=== PATIENT | male | born 1935 | race Caucasian/White ===

== ENCOUNTER 2018-09-24 16:01 | Emergency (ER) | END 2018-09-24 20:49 | disposition home or self-care (01) ==

== ENCOUNTER 2019-02-12 20:16 | Inpatient (IN) | payer MEDICARE, OTHER ==
[~2019-02-12] VITALS: Ht 157.5 cm; Wt 72.8 kg
[~2019-02-12 20:16] MED LIST: AMAN100C96 PO; ASPI-817 PO; ATEN50TA PO; CARB1TAB47 PO; DUTA0.5C PO; FOLI-49 PO; MONT10TA24 PO; PANT40TA3 PO; POTA8CAP PO; PREG50CA PO; SIN50200 PO; TAMS0.4C2 PO; TEMA15CA PO
[2019-02-13] MEDS ORDERED: SOD CHLORIDE 0.9% 500 ML IV STA (00:11)
[2019-02-13] MEDS ORDERED: CARBIDOPA/LEVODOPA 50-200 (CR) TAB PO ONE (00:30)
--- NOTE | 2019-02-13 01:42 | ERD ---
ER Documentation Chief Complaint Chief Complaint C/O SEVERE HAMM X2 DAYS, TREATED SHINGLES TO RT FACE 6MONTHS AGO HPI This is an 83-year-old male, dysuria for 2 days. Patient has tried antibiotics for sinusitis and was sent by primary care for further evaluation management. No focal neurologic complaints. No pain behind his eyes. No other current issues. No change in visual acuity. Primary care physician sent him essentially for blood work antibiotics and admission ROS All systems reviewed and are negative except as per history of present illness. Medications Home Meds Reported Medications Pantoprazole* (Protonix*) 40 Mg Tablet.dr, 40 MG PO DAILY, TAB 11/04/18 Folic Acid* (Folic Acid*) 1 Mg Tablet, 1 MG PO DAILY, TAB 09/24/18 Temazepam* (Temazepam*) 15 Mg Capsule, 15 MG PO HS PRN for INSOMNIA, CAP 09/24/18 Aspirin* (Aspirin* EC) 81 Mg Tablet.dr, 81 MG PO DAILY, TAB 09/24/18 Potassium Chloride* (Potassium Chloride*) 8 Meq Capsule.er, 8 MEQ PO DAILY, CAP 09/24/18 Pregabalin* (Lyrica*) 50 Mg Capsule, 50 MG PO DAILY, CAP 09/24/18 Dutasteride* (Avodart*) 0.5 Mg Capsule, 0.5 MG PO DAILY, CAP 09/24/18 Montelukast Sodium* (Montelukast Sodium*) 10 Mg Tablet, 10 MG PO QHS, #30 TAB 09/24/18 Tamsulosin Hcl* (Tamsulosin Hcl*) 0.4 Mg Cap.er.24h, 0.8 MG PO HS, CAP 09/24/18 Atenolol* (Atenolol*) 50 Mg Tablet, 50 MG PO DAILY, #30 TAB 09/24/18 Amantadine Hcl* (Amantadine Hcl*) 100 Mg Capsule, 100 MG PO BID, #60 CAP 09/24/18 Carbidopa/Levodopa (CARBIDOPA-LEVO 25-250 MG ODT) 1 Each Tab.rapdis, 1 TAB PO TID, #90 TAB 09/24/18 Carbidopa-Levodopa* (Sinemet CR*) 50-200 Mg Tabsr, 1 TAB PO QHS, TAB 09/24/18 Allergies Allergies: Coded Allergies: No Known Allergy (Unverified , 09/24/18) PMhx/Soc History of Surgery: No Anesthesia Reaction: No Hx Neurological Disorder: Yes (PARKINSONS) Hx Respiratory Disorders: Yes (ASTHMA) Hx Cardiac Disorders: Yes (HTN) Hx Psychiatric Problems: No Hx Miscellaneous Medical Probl: No Hx Alcohol Use: No Hx Substance Use: No Hx Tobacco Use: Yes (1PACK/DAY) Smoking Status: Current every day smoker Physical Exam Vitals Vital Signs Date Temp Pulse Resp B/P (MAP) Pulse Ox O2 O2 Flow FiO2 Time Delivery Rate 02/13/19 98.5 105 18 137/73 97 Room Air 00:25 (94) 02/12/19 98.5 116 18 144/64 95 20:47 (90) Physical Exam Const: No acute distress Head: Atraumatic Eyes: Normal Conjunctiva ENT: Normal External Ears, Nose and Mouth. Neck: Full range of motion. No meningismus. Resp: Clear to auscultation bilaterally Cardio: Regular rate and rhythm, no murmurs Abd: Soft, non tender, non distended. Normal bowel sounds Skin: No petechiae or rashes Back: No midline or flank tenderness Ext: No cyanosis, or edema Neur: Awake and alert Psych: Normal Mood and Affect Result Diagram: 02/13/19 0034 Results 24 hrs Laboratory Tests Test 02/13/19 00:34 White Blood Count 7.7 10^3/ul Red Blood Count 4.58 10^6/ul Hemoglobin 12.9 g/dl Hematocrit 42.4 % Mean Corpuscular Volume 92.6 fl Mean Corpuscular Hemoglobin 28.2 pg Mean Corpuscular Hemoglobin Concent 30.4 g/dl Red Cell Distribution Width 13.2 % Platelet Count 256 10^3/UL Mean Platelet Volume 11.1 fl Immature Granulocytes % 0.700 % Neutrophils % 73.4 % Lymphocytes % 15.9 % Monocytes % 7.3 % Eosinophils % 2.2 % Basophils % 0.5 % Nucleated Red Blood Cells % 0.0 /100WBC Immature Granulocytes # 0.050 10^3/ul Neutrophils # 5.6 10^3/ul Lymphocytes # 1.2 10^3/ul Monocytes # 0.6 10^3/ul Eosinophils # 0.2 10^3/ul Basophils # 0.0 10^3/ul Nucleated Red Blood Cells # 0.0 10^3/ul Urine Color YELLOW Urine Clarity CLEAR Urine pH 6.0 Urine Specific [place] 1.016 Urine Ketones TRACE mg/dL Urine Nitrite NEGATIVE mg/dL Urine Bilirubin NEGATIVE mg/dL Urine Urobilinogen NEGATIVE mg/dL Urine Leukocyte Esterase 2+ Mark/ul Urine Microscopic RBC 4 /HPF Urine Microscopic WBC 24 /HPF Urine Squamous Epithelial Cells FEW /HPF Urine Bacteria FEW /HPF Urine Hemoglobin NEGATIVE mg/dL Urine Glucose NEGATIVE mg/dL Urine Total Protein NEGATIVE mg/dl Current Medications Medications Dose Sig/Kamini Start Time Status Last (Trade) Ordered Route PRN Stop Time Admin Dose Reason Admin Sodium 500 ml @ Q1H STAT 02/13/19 DC 02/13/19 Chloride 500 mls/hr IV 00:11 01:22 02/13/19 01:10 1 tab ONCE ONCE 02/13/19 DC 02/13/19 Carbidopa/Lev PO 00:30 01:20 odopa 02/13/19 00:31 (Sinemet Cr (50/ 200)) Procedures/MDM Medical decision makin-year-old male with sinusitis failure of outpatient management. Dr. Stringer and Departure Diagnosis: Primary Impression: Headache Headache type: unspecified Headache chronicity pattern: unspecified pattern Intractability: not intractable Qualified Codes: R51 - Headache Condition: Stable DEVANTE REED February 13, 2019 01:42
[2019-02-13 02:20] VITALS: BP 144/71; PULSE 105; RESP 18
[2019-02-13 02:44] VITALS: Ht 157.5 cm; Wt 72.8 kg
[2019-02-13] MEDS ORDERED: VANCOMYCIN 1 GM (PMX) 250 ML IVPB SCH (03:30)
[2019-02-13] MEDS ORDERED: VANCOMYCIN HCL 1.5 GM in SOD CHLORIDE 0.9% 250 ML IVPB SCH (05:00)
[2019-02-13] MEDS ORDERED: VANCOMYCIN IV PER PHARMACY XX SCH ×2 (05:00)
[2019-02-13 08:00] VITALS: BP 152/70; PULSE 70; RESP 18
[2019-02-13] MEDS: ALBUTEROL/IPRATROPIUM (NEB) 3 ML AMP HHN SCH ×3 (08:12→23:12)
[2019-02-13] MEDS: AMANTADINE 100 MG CAP PO SCH ×2 (09:00→22:27)
[2019-02-13] MEDS ORDERED: CARBIDOPA/LEVODOPA (25/250) TAB PO SCH (09:00)
[2019-02-13] MEDS: NICOTINE (7 MG/24 HR) PATCH TRANSDERM SCH (09:00)
--- NOTE | 2019-02-13 09:14 | HP ---
Date/Time of Note Date/Time of Note DATE: 02/13/19 TIME: 09:02 Assessment/Plan VTE Prophylaxis SCD applied (from Nsg): No SCD contraindicated: other (on.) Pharmacological prophylaxis: LMWH Lines/Catheters IV Catheter Type (from Nrsg): [place] [employer] line still needed: No Urinary Cath still in place: Yes Reason Cath still needed: urinary retention Assessment/Plan Assessment/Plan 1. Right hemicranial pain mainly in the forehead area and right ear area with urinalysis and erythema of the earlobe along with pain. Posterior history of shingles over the right ear and earlobe area about a year ago. Clinically patient feels the same symptoms at the probability of recurrence of her shingles is high. Continue follow-up and restart Valtrex. Cellulitis of the right cheek area is more visible comparing with yesterday despite with Zithromax received 2 to 3 days ago. 2. Nausea with no vomiting. 3. Sinusitis with pain recurrent. 4. Recurrent episode of severe hypoxemia last night accompanying with confusion irritability noncompliance and possible psychosis .for severe hypoxemia- pulmonary consult acknowledged. PFT test planned 5. 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 6. COPD exacerbation with pleural effusion. 7 Hx nicotine addiction with current restarted smoking according to him 5 to 6 cigarettes a day. 8. anemia of chronic disease and iron deficiency 9. Low back pain 10. Weight loss 11. Ad and MD 12. Ischemic heart disease angina 13. 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 Confusion, disorientation, occasional episodes of delusions 15. BPH 16. Osteoporosis and osteoarthritis 17. Memory impairment 18. Unstable gait 19. Dehydration with near fall episodes 20. Muscular atrophy 21. Severe peripheral neuropathy 22. Noncompliance to medications 23.Uncontrolled HTN 24.Hx of intubation and mechanical ventilation many years ago after severe exacerbation of copd. 25.History of multiple units of prbc transfusion in [facility]. the narrow arteries of the of the right side and partially to the left lower extremity 26. Anxiety disorder with episodes of confusion panic attack as well as last night improved after taking Ativan 1 mg IV. 27.Incomplete information. Result Diagram: 02/13/19 0034 02/13/19 0034 Results 24hrs Laboratory Tests Test 02/13/19 00:34 White Blood Count 7.7 # Red Blood Count 4.58 L Hemoglobin 12.9 L Hematocrit 42.4 Mean Corpuscular Volume 92.6 Mean Corpuscular Hemoglobin 28.2 L Mean Corpuscular Hemoglobin Concent 30.4 L Red Cell Distribution Width 13.2 Platelet Count 256 # Mean Platelet Volume 11.1 H Immature Granulocytes % 0.700 H Neutrophils % 73.4 Lymphocytes % 15.9 Monocytes % 7.3 Eosinophils % 2.2 Basophils % 0.5 Nucleated Red Blood Cells % 0.0 Immature Granulocytes # 0.050 H Neutrophils # 5.6 Lymphocytes # 1.2 Monocytes # 0.6 Eosinophils # 0.2 Basophils # 0.0 Nucleated Red Blood Cells # 0.0 Erythrocyte Sedimentation Rate 12 Urine Color YELLOW Urine Clarity CLEAR Urine pH 6.0 Urine Specific [place] 1.016 Urine Ketones TRACE A Urine Nitrite NEGATIVE Urine Bilirubin NEGATIVE Urine Urobilinogen NEGATIVE Urine Leukocyte Esterase 2+ H Urine Microscopic RBC 4 Urine Microscopic WBC 24 H Urine Squamous Epithelial Cells FEW Urine Bacteria FEW A Urine Hemoglobin NEGATIVE Urine Glucose NEGATIVE Urine Total Protein NEGATIVE Sodium Level 142 Potassium Level 4.2 Chloride Level 104 Carbon Dioxide Level 27 Anion Gap 11 Blood Urea Nitrogen 19 Creatinine 1.13 Est Glomerular Filtrat Rate mL/min Glucose Level 111 Calcium Level 10.0 Magnesium Level 2.1 Iron Level 49 Total Iron Binding Capacity 366 Percent Iron Saturation 13 L Total Bilirubin 0.3 Direct Bilirubin 0.00 Indirect Bilirubin 0.3 Aspartate Amino Transf (AST/SGOT) 15 Alanine Aminotransferase (ALT/SGPT) < 6 L Alkaline Phosphatase 100 Creatine Kinase 30 Creatine Kinase Index 2.5 Creatinine Kinase MB (Mass) 0.76 Troponin I < 0.012 C-Reactive Protein 1.7 H Total Protein 7.9 Albumin 4.7 Globulin 3.20 Albumin/Globulin Ratio 1.46 Lipase 46 HPI/ROS Admit Date/Time Admit Date/Time February 13, 2019 at 01:16 Hx of Present Illness Headache mainly in the frontal area accompanied with nausea and worsening of her shaking of right more than left upper extremity. Now the pain is more in the retroauricular area and he feels blurry vision on the right eye mainly. The patient came to the office last 3 days almost daily with above-mentioned complaints and having also chills. He smokes had a history of intubation due to worsening of his COPD and had ischemic heart disease angina decision was made to start antibiotic in the form of Zithromax along with Labe Lama inhaler in the form of Anoro last 3 days. After starting the treatment 1 day patient felt better that the pain intensity came down and he had no chills. However yesterday patient came to the office twice one in the morning when physical exam was without significant findings however during the daytime when patient came to the office he was stating that the blurry vision of the right eye got more prominent referred him to the chip separator in the [place] area after 3 hours patient came back with a statement that fundal examination was normal pressures were normal there were no signs of any acute changes in the eyes. Patient continues to have frontal area headache mainly in the right side right eye pain including right ear pain he had a history of shingles the suspicion of a possible recurrence of his shingles in the same region with erythema of the right earlobe area and hearing impairment along with worsening of shortness of breath becoming dizzy and worsening of a headache was a basis for me to change outpatient treatment plan to the inpatient and attempted to admit the patient by direct admission. Multiple schools were made but it was impossible and the patient was admitted to the emergency room. Lab results were not significant compared with the previous exams including the anemia level. His WBCs are not elevated CT of the head was not done. Started with empiric antibiotics including coverage for possible recurrence of herpes zoster. ROS Subjective hx not possible: pt critical Constitutional: chills, diaphoresis, disoriented, fatigue, febrile, nausea, poor po, weight change; No no complaints, No improved, No other Eyes: pain, redness, visual change (Patient feels blurry on the right eye), other; No no complaints, No discharge ENT: No no complaints, No bleeding, No pain, No congestion, No discharge, No dysphagia, No sore throat, No other Respiratory: cough ( no complaints of her left eye), pleuritic pain, shortness of breath, sputum, wheezing; No no complaints, No pain, No other Cardiovascular: chest pain, edema, lightheadedness, orthopenea, palpitations; No no complaints, No paroxysmal nocturnal dyspnea, No other Gastrointestinal: pain, constipation, decreased appetite, flatus, nausea, passing stool; No no complaints, No blood, No diarrhea, No vomiting, No other Genitourinary: dysuria; No no complaints, No bleeding, No discharge, No flank pain, No hematuria, No other Musculoskeletal: back pain, bone/joint pain, neck pain; No no complaints, No restricted range of motion, No swelling, No other Skin: erythema, pruritis, rash; No no complaints, No bruising, No laceration, No skin lesions, No other Neurologic: confusion (On and off with memory impairment.), dizziness, headache; No no complaints, No focal-weakness, No syncope, No seizure, No other Endocrine: No no complaints, No polyuria, No polydypsia, No dry skin, No temp intolerance, No weight change, No other Lymphatic: No no complaints, No adenopathy, No tender nodes, No lymphadema, No other Psychological: anxiety, depression; No no complaints, No nl mood/affect, No confusion, No suicidal, No other Immunologic: No no complaints, No immunodeficiency, No pruritis, No rhinitis, No urticaria, No other PMH/Family/Social Past Medical History Medical History: angina, colitis, congestive heart failure, coronary artery disease, GERD, GI bleed, high cholesterol, hypertension, renal disease, urinary tract infection Medications Current Medications Amantadine HCl (Symmetrel) 100 mg BID PO ; Start 02/13/19 at 09:00 Aspirin (Halfprin) 81 mg DAILY PO ; Start 02/13/19 at 09:00 Atenolol (Tenormin) 50 mg DAILY PO ; Start 02/13/19 at 09:00 Carbidopa/Levodopa (Sinemet Cr (50/ 200)) 1 tab QHS PO ; Start 02/13/19 at 21:00 Dutasteride (Avodart) 0.5 mg DAILY PO ; Start 02/13/19 at 09:00 Folic Acid (Folic Acid) 1 mg DAILY PO ; Start 02/13/19 at 09:00 Montelukast Sodium (Singulair) 10 mg QHS PO ; Start 02/13/19 at 21:00 Pantoprazole (Protonix Tab) 40 mg DAILY PO ; Start 02/13/19 at 09:00 Pregabalin (Lyrica) 50 mg DAILY PO ; Start 02/13/19 at 09:00 Tamsulosin HCl (Flomax) 0.8 mg HS PO ; Start 02/13/19 at 21:00 Albuterol/ Ipratropium (Duoneb) 3 ml Q8H RESP THERAPY HHN Last administered on 02/13/19at 08:12; Admin Dose 3 ML; Start 02/13/19 at 08:00 Nicotine (Nicoderm 7 Mg/ 24 Hr) 1 patch DAILY TRANSDERM ; Start 02/13/19 at 09:00 Valacyclovir HCl (Valtrex) 1,000 mg BID PO ; Start 02/13/19 at 09:00 Acetaminophen (Tylenol Tab) 500 mg Q8 PRN PO MILD PAIN(1-3)OR ELEVATED TEMP; Start 02/13/19 at 03:30 Vancomycin HCl (Vanco Iv Per Pharmacy) VANCOMYCIN PER PHARMACY PER PROTOCOL XX ; Start 02/13/19 at 05:00 Carbidopa/Levodopa (Sinemet (25/ 250)) 1 tab TID@0900,1300,1700 PO ; Start 02/13/19 at 09:00 Vancomycin HCl 250 ml @ 125 mls/hr Q24H IVPB ; Start 02/14/19 at 06:00 Coded Allergies: No Known Allergy (Unverified , 02/13/19) Past Surgical History Past Surgical Hx: endoscopy, other Social History Alcohol Use: none Smoking Status: Current every day smoker Drug Use: none Exam/Review of Systems Vital Signs Vitals Vital Signs Date Temp Pulse Resp B/P (MAP) Pulse Ox O2 O2 Flow FiO2 Time Delivery Rate 02/13/19 78 18 95 21 08:15 02/13/19 98.3 152/70 Room Air 08:00 (97) Exam Constitutional: alert, oriented, well developed, distress, frail; No non-verbal, No other Psych: anxiety, depression; No no complaints, No nl mood/affect, No confusion, No suicidal, No other Head: normocephalic, atraumatic; No lacerations, No hematomas, No other Eyes: EOMI, nl lids, PERRL, other (Post bilateral cataract ectomy surgery changes along with the changes consistent with plastic surgery of her eyelids with good results. Right orbital fissure is slightly wider than left one with tearfullness); No nl conjunctiva, No nl sclera, No icteric, No fundi, disc ENMT: nl external ears & nose (Very dry external ear bilaterally with erythematous earlobe on the posterior aspect), nl lips & teeth (Dentures), nl nasal mucosa & septum (Possible mild watery discharge from nasal), tympanic membranes ( passages bilaterally); No mucosa pink and moist, No intubated, No other Neck: bruits, nuchal rigidity; No supple, No non-tender, No jvd, No masses, No thyromegaly, No other Respiratory: congested cough, diminished breath sounds, wheezing; No clear to auscultation, No normal air movement, No crackles/rales, No intercostal retraction, No labored breathing, No respirations, No tactile fremitus, No other Cardiovascular: regular rate and rhythm, nl pulses, systolic murmur; No bruits, No diastolic murmur, No edema, No gallop, No irregular rhythm, No jugular venous distention (JVD), No murmurs/extra sounds, No rub, No S3, No S4, No other Gastrointestinal: soft, nl liver, spleen, bowel sounds, distended; No non-tender, No ascites, No firm, No hepatomegaly, No mass, No rebound or guarding, No splenomegaly, No surgical scars, No tender, No other Genitourinary - Male: nl penis, nl scrotum Genitourinary - Female: No nl adnexae, No nl external genitalia, No CMT, No CVA tenderness, No uterus, No other Musculoskeletal: nl extremities to inspection (Unstable gait), nl gait and stance, joint tenderness, muscle tone, muscle weakness (Decreased muscular tone); No range of motion, No spine non-tender, No swelling, No other Extremities: normal pulses; No calf tenderness, No cyanosis, No clubbing, No edema, No pitting pedal edema, No palpable cord, No tenderness, No other Neurological: 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
[2019-02-13] MEDS: valACYclovir 500 MG TAB PO SCH ×2 (09:58→20:24)
[2019-02-13] MEDS: PREGABALIN 50 MG CAP PO SCH (09:58)
[2019-02-13] MEDS: PANTOPRAZOLE (EC) 40 MG TAB PO SCH (09:58)
[2019-02-13] MEDS: FOLIC ACID 1 MG TAB PO SCH (09:59)
[2019-02-13] MEDS: DUTASTERIDE 0.5 MG CAP PO SCH (09:59)
[2019-02-13] MEDS: ASPIRIN (EC) 81 MG TAB PO SCH (09:59)
[2019-02-13] MEDS: CARBIDOPA/LEVODOPA (25/250) TAB PO SCH ×3 (10:00→16:50)
[2019-02-13] MEDS: ATENOLOL 50 MG TAB PO SCH (10:00)
[2019-02-13] MEDS: ACETAMINOPHEN 500 MG TAB PO PRN ×2 (10:01→22:27)
[2019-02-13] MEDS ORDERED: IODIXANOL LOCM 100 ML BTL ONE (11:12)
[2019-02-13] MEDS ORDERED: SOD CHLORIDE 0.9% 100 ML ONE (11:12)
[2019-02-13 14:00] VITALS: BP 134/72; RESP 18
[2019-02-13 20:10] VITALS: BP 137/68; PULSE 81; RESP 18
[2019-02-13] MEDS: MONTELUKAST 10 MG TAB PO SCH (20:24)
[2019-02-13] MEDS: TAMSULOSIN (SR) 0.4 MG CAP PO SCH (20:25)
[2019-02-13] MEDS: CARBIDOPA/LEVODOPA 50-200 (CR) TAB PO SCH (20:31)
[2019-02-14 00:42] VITALS: BP 116/58; PULSE 85; RESP 18
[2019-02-14] MEDS: HYDROCODONE/APAP (5/325) TAB PO PRN (00:45)
[2019-02-14 05:00] VITALS: BP 126/62; PULSE 83; RESP 18
[2019-02-14] MEDS: VANCOMYCIN 1 GM 250 ML IVPB SCH (05:24)
[2019-02-14 08:00] VITALS: BP 136/76; PULSE 76; RESP 18
[2019-02-14] MEDS: ALBUTEROL/IPRATROPIUM (NEB) 3 ML AMP HHN SCH ×2 (08:00→16:00)
--- NOTE | 2019-02-14 09:50 | PN ---
Date/Time of Note Date/Time of Note DATE: 02/14/19 TIME: 09:50 Assessment/Plan VTE Prophylaxis Risk score (from Nsg)>0 risk: 3 SCD applied (from Nsg): Yes SCD contraindicated: other (on.) Pharmacological prophylaxis: LMWH Lines/Catheters IV Catheter Type (from Nrsg): [place] [employer] line still needed: No Urinary Cath still in place: Yes Reason Cath still needed: urinary retention Assessment/Plan Assessment/Plan 1. Right hemicranial pain mainly in the forehead area and right ear area with urinalysis and erythema of the earlobe on the right side of the face getting more edematous comparing with yesterday along with the pain. No radiation of the posterior aspect of the right earlobe possible recurrence of her shingles however no blister. Decreased erythema of the right cheek area. 2. Nausea with no vomiting. 3. Sinusitis with pain recurrent. 4. Recurrent episode of severe hypoxemia last night accompanying with confusion irritability noncompliance and possible psychosis .for severe hypoxemia-pu lmonary consult acknowledged. PFT test planned 5. 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 6. COPD exacerbation with pleural effusion. 7 Hx nicotine addiction with current restarted smoking according to him 5 to 6 cigarettes a day. 8. anemia of chronic disease and iron deficiency 9. Low back pain 10. Weight loss 11. Ad and MD 12. Ischemic heart disease angina 13. 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 Confusion, disorientation, occasional episodes of delusions 15. BPH 16. Osteoporosis and osteoarthritis 17. Memory impairment 18. Unstable gait 19. Dehydration with near fall episodes 20. Muscular atrophy 21. Severe peripheral neuropathy 22. Noncompliance to medications 23.Uncontrolled HTN 24.Hx of intubation and mechanical ventilation many years ago after severe exacerbation of copd. 25.History of multiple units of prbc transfusion in [facility]. the narrow arteries of the of the right side and partially to the left lower extremity 26. Anxiety disorder with episodes of confusion panic attack as well as last night improved after taking Ativan 1 mg IV. 27.Incomplete information. Result Diagram: 02/14/19 0548 02/14/19 0548 Results 24hrs Laboratory Tests Test 02/14/19 05:48 White Blood Count 6.7 Red Blood Count 4.29 L Hemoglobin 12.2 L Hematocrit 39.1 L Mean Corpuscular Volume 91.1 Mean Corpuscular Hemoglobin 28.4 L Mean Corpuscular Hemoglobin Concent 31.2 L Red Cell Distribution Width 13.4 Platelet Count 241 Mean Platelet Volume 11.4 H Immature Granulocytes % 0.400 Neutrophils % 66.6 Lymphocytes % 21.1 Monocytes % 8.2 Eosinophils % 3.3 Basophils % 0.4 Nucleated Red Blood Cells % 0.0 Immature Granulocytes # 0.030 Neutrophils # 4.5 Lymphocytes # 1.4 Monocytes # 0.6 Eosinophils # 0.2 Basophils # 0.0 Nucleated Red Blood Cells # 0.0 Sodium Level 141 Potassium Level 4.3 Chloride Level 107 Carbon Dioxide Level 26 Anion Gap 8 Blood Urea Nitrogen 14 Creatinine 1.08 Est Glomerular Filtrat Rate mL/min Glucose Level 128 Calcium Level 9.3 Total Bilirubin 0.3 Direct Bilirubin 0.00 Indirect Bilirubin 0.3 Aspartate Amino Transf (AST/SGOT) 13 L Alanine Aminotransferase (ALT/SGPT) 7 L Alkaline Phosphatase 83 Total Protein 7.0 Albumin 4.4 Globulin 2.60 Albumin/Globulin Ratio 1.69 Subjective 24 Hr Interval Summary Free Text/Dictation New blisterlike lesion in the posterior aspect of the right earlobe with scaling lesion in the mid area of the skin. The posterior aspect of the right earlobe lesion. Significant decrease of the intensity of swelling and redness of the right cheek area right infraorbital side. Persistent pain in the right hemicranial area. Constitutional: improved, chills, febrile, poor po; No no complaints, No diaphoresis, No disoriented, No requiring IVF, No requiring O2, No other Eyes: No no complaints, No pain, No discharge, No redness, No visual change, No other ENT: pain, congestion, discharge, dysphagia, other; No no complaints, No bleeding, No sore throat Respiratory: cough, pleuritic pain, shortness of breath; No no complaints, No pain, No sputum, No wheezing, No other Cardiovascular: chest pain, lightheadedness, orthopenea, palpitations; No no complaints, No edema, No paroxysmal nocturnal dyspnea, No other Gastrointestinal: constipation, decreased appetite, nausea, passing stool; No no complaints, No pain, No blood, No diarrhea, No flatus, No vomiting, No other Genitourinary: dysuria, flank pain; No no complaints, No bleeding, No discharge, No hematuria, No other Musculoskeletal: back pain, bone/joint pain; No no complaints, No neck pain, No restricted range of motion, No swelling, No other Skin: erythema (Right zygomatic & inferior lead area erythema less intense than yesterday.), pruritis, rash; No no complaints, No bruising, No laceration, No skin lesions, No other Psychological: anxiety; No no complaints, No nl mood/affect, No confusion, No depression, No suicidal, No other Immunologic: No no complaints, No immunodeficiency, No pruritis, No rhinitis, No urticaria, No other Exam/Review of Systems Exam Vitals Vital Signs Date Temp Pulse Resp B/P (MAP) Pulse Ox O2 O2 Flow FiO2 Time Delivery Rate 02/14/19 98.8 76 18 136/76 98 08:00 (96) 02/14/19 Room Air 00:42 02/13/19 21 23:12 Intake and Output 02/13/19 02/13/19 02/14/19 1414:59 22:59 06:59 IntakeIntake Total 350 ml 600 ml 720 ml BalanceBalance 350 ml 600 ml 720 ml Constitutional: alert, oriented, well developed, distress, frail Psych: anxiety, confusion; No no complaints, No nl mood/affect, No depression, No suicidal, No other Head: normocephalic, atraumatic; No lacerations, No hematomas, No other Eyes: EOMI, nl lids, PERRL; No nl conjunctiva, No nl sclera, No icteric, No fundi, disc, No other ENMT: nl lips & teeth; No nl external ears & nose, No nl nasal mucosa & septum, No mucosa pink and moist, No intubated, No tympanic membranes, No other Neck: non-tender, bruits, thyromegaly; No supple, No jvd, No masses, No nuchal rigidity, No other Respiratory: clear to auscultation, congested cough, crackles/rales, diminished breath sounds, respirations; No normal air movement, No intercostal retraction, No labored breathing, No tactile fremitus, No wheezing, No other Cardiovascular: regular rate and rhythm, bruits, edema, irregular rhythm, jugular venous distention (JVD), systolic murmur; No nl pulses, No diastolic murmur, No gallop, No murmurs/extra sounds, No rub, No S3, No S4, No other Gastrointestinal: soft, nl liver, spleen, ascites, distended, rebound or guarding; No non-tender, No bowel sounds, No firm, No hepatomegaly, No mass, No sple nomegaly, No surgical scars, No tender, No other Genitourinary - Male: nl penis Musculoskeletal: nl gait and stance (Unstable.), joint tenderness, muscle tone, muscle weakness; No nl extremities to inspection, No range of motion, No spine non-tender, No swelling, No other Extremities: No normal pulses, No calf tenderness, No cyanosis, No clubbing, No edema, No pitting pedal edema, No palpable cord, No tenderness, No other Neurological: No [employer]ANS[employer] IMM[employer]IST II-XII intact, No nl mental status, No nl speech, No nl strength, No confused, No DTR's symmetric, No focal weakness, No lethargic, No numbness, No reflexes, No unresponsive, No other Skin: nl turgor (Decreased.), rash or lesions (Right zygomatic & inferior lead area erythema less intense than yesterday. Blisterlike lesions with scaling in posterior aspect of the right earlobe.), ecchymosis; No diaphoresis, No laceration, No puncture, No other Lymph: No nl lymph nodes, No enlarged, No nontender, No other Results Results 24hrs Laboratory Tests Test 02/14/19 05:48 White Blood Count 6.7 Red Blood Count 4.29 L Hemoglobin 12.2 L Hematocrit 39.1 L Mean Corpuscular Volume 91.1 Mean Corpuscular Hemoglobin 28.4 L Mean Corpuscular Hemoglobin Concent 31.2 L Red Cell Distribution Width 13.4 Platelet Count 241 Mean Platelet Volume 11.4 H Immature Granulocytes % 0.400 Neutrophils % 66.6 Lymphocytes % 21.1 Monocytes % 8.2 Eosinophils % 3.3 Basophils % 0.4 Nucleated Red Blood Cells % 0.0 Immature Granulocytes # 0.030 Neutrophils # 4.5 Lymphocytes # 1.4 Monocytes # 0.6 Eosinophils # 0.2 Basophils # 0.0 Nucleated Red Blood Cells # 0.0 Sodium Level 141 Potassium Level 4.3 Chloride Level 107 Carbon Dioxide Level 26 Anion Gap 8 Blood Urea Nitrogen 14 Creatinine 1.08 Est Glomerular Filtrat Rate mL/min Glucose Level 128 Calcium Level 9.3 Total Bilirubin 0.3 Direct Bilirubin 0.00 Indirect Bilirubin 0.3 Aspartate Amino Transf (AST/SGOT) 13 L Alanine Aminotransferase (ALT/SGPT) 7 L Alkaline Phosphatase 83 Total Protein 7.0 Albumin 4.4 Globulin 2.60 Albumin/Globulin Ratio 1.69 Medications Medication Current Medications Amantadine HCl (Symmetrel) 100 mg BID PO Last administered on 02/13/19 22:27; Admin Dose 100 MG; Start 02/13/19 at 09:00 Aspirin (Halfprin) 81 mg DAILY PO Last administered on 02/13/19 09:59; Admin Dose 81 MG; Start 02/13/19 at 09:00 Atenolol (Tenormin) 50 mg DAILY PO Last administered on 02/13/19 10:00; Admin Dose 50 MG; Start 02/13/19 at 09:00 Carbidopa/Levodopa (Sinemet Cr (50/ 200)) 1 tab QHS PO Last administered on 02/13/19 20:31; Admin Dose 1 TAB; Start 02/13/19 at 21:00 Dutasteride (Avodart) 0.5 mg DAILY PO Last administered on 02/13/19 09:59; Admin Dose 0.5 MG; Start 02/13/19 at 09:00 Folic Acid (Folic Acid) 1 mg DAILY PO Last administered on 02/13/19 09:59; Admin Dose 1 MG; Start 02/13/19 at 09:00 Montelukast Sodium (Singulair) 10 mg QHS PO Last administered on 02/13/19 20:24; Admin Dose 10 MG; Start 02/13/19 at 21:00 Pantoprazole (Protonix Tab) 40 mg DAILY PO Last administered on 02/13/19 09:58; Admin Dose 40 MG; Start 02/13/19 at 09:00 Pregabalin (Lyrica) 50 mg DAILY PO Last administered on 02/13/19 09:58; Admin Dose 50 MG; Start 02/13/19 at 09:00 Tamsulosin HCl (Flomax) 0.8 mg HS PO Last administered on 02/13/19 20:25; Admin Dose 0.8 MG; Start 02/13/19 at 21:00 Albuterol/ Ipratropium (Duoneb) 3 ml Q8H RESP THERAPY HHN Last administered on 02/13/19at 23:12; Admin Dose 3 ML; Start 02/13/19 at 08:00 Nicotine (Nicoderm 7 Mg/ 24 Hr) 1 patch DAILY TRANSDERM ; Start 02/13/19 at 09:00 Valacyclovir HCl (Valtrex) 1,000 mg BID PO Last administered on 02/13/19at 2 0:24; Admin Dose 1,000 MG; Start 02/13/19 at 09:00 Acetaminophen (Tylenol Tab) 500 mg Q8 PRN PO MILD PAIN(1-3)OR ELEVATED TEMP Last administered on 02/13/19at 22:27; Admin Dose 500 MG; Start 02/13/19 at 03:30 Vancomycin HCl (Vanco Iv Per Pharmacy) VANCOMYCIN PER PHARMACY PER PROTOCOL XX ; Start 02/13/19 at 05:00 Carbidopa/Levodopa (Sinemet (25/ 250)) 1 tab TID@0900,1300,1700 PO Last administered on 02/13/19at 16:50; Admin Dose 1 TAB; Start 02/13/19 at 09:00 Vancomycin HCl 250 ml @ 125 mls/hr Q24H IVPB Last administered on 02/14/19at 05:24; Admin Dose 125 MLS/HR; Start 02/14/19 at 06:00 Acetaminophen/ Hydrocodone Bitart ([place] (5/325)) 1 tab Q6H PRN PO SEVERE PAIN 7-10 Last administered on 02/14/19at 00:45; Admin Dose 1 TAB; Start 02/14/19 at 01:00 LE STONE MD February 14, 2019 09:50
[2019-02-14] MEDS: PREGABALIN 50 MG CAP PO SCH (10:11)
[2019-02-14] MEDS: AMANTADINE 100 MG CAP PO SCH ×2 (10:11→21:01)
[2019-02-14] MEDS: valACYclovir 500 MG TAB PO SCH (10:11)
[2019-02-14] MEDS: DUTASTERIDE 0.5 MG CAP PO SCH (10:12)
[2019-02-14] MEDS: PANTOPRAZOLE (EC) 40 MG TAB PO SCH (10:12)
[2019-02-14] MEDS: FOLIC ACID 1 MG TAB PO SCH (10:13)
[2019-02-14] MEDS: ATENOLOL 50 MG TAB PO SCH (10:15)
[2019-02-14] MEDS: NICOTINE (7 MG/24 HR) PATCH TRANSDERM SCH (10:16)
[2019-02-14] MEDS: ASPIRIN (EC) 81 MG TAB PO SCH (10:54)
[2019-02-14] MEDS: CARBIDOPA/LEVODOPA (25/250) TAB PO SCH ×3 (10:54→17:56)
[2019-02-14] MEDS ORDERED: VARICELLA VACCINE LIVE/PF 1,350 UNIT/0.5 ML ML SC* ONE (12:00)
[2019-02-14 14:00] VITALS: BP 136/76; PULSE 84; RESP 18
--- NOTE | 2019-02-14 16:25 | CONS ---
Assessment/Plan Assessment/Plan Hospital Course (Demo Recall) kindly asked to consult. ty Consultation Date/Type/Reason Admit Date/Time February 13, 2019 at 01:16 Initial Consult Date Date/Time of Note DATE: 02/14/19 TIME: 16:24 Exam/Review of Systems Exam Vitals Vital Signs Date Temp Pulse Resp B/P (MAP) Pulse Ox O2 O2 Flow FiO2 Time Delivery Rate 02/14/19 98.8 84 18 136/76 96 14:00 (96) 02/14/19 Room Air 00:42 02/13/19 21 23:12 Intake and Output 02/13/19 02/13/19 02/14/19 1515:00 23:00 07:00 IntakeIntake Total 350 ml 600 ml 720 ml BalanceBalance 350 ml 600 ml 720 ml Results Result Diagram: 02/14/19 0548 02/14/19 0548 Results 24hrs Laboratory Tests Test 02/14/19 05:48 White Blood Count 6.7 Red Blood Count 4.29 L Hemoglobin 12.2 L Hematocrit 39.1 L Mean Corpuscular Volume 91.1 Mean Corpuscular Hemoglobin 28.4 L Mean Corpuscular Hemoglobin Concent 31.2 L Red Cell Distribution Width 13.4 Platelet Count 241 Mean Platelet Volume 11.4 H Immature Granulocytes % 0.400 Neutrophils % 66.6 Lymphocytes % 21.1 Monocytes % 8.2 Eosinophils % 3.3 Basophils % 0.4 Nucleated Red Blood Cells % 0.0 Immature Granulocytes # 0.030 Neutrophils # 4.5 Lymphocytes # 1.4 Monocytes # 0.6 Eosinophils # 0.2 Basophils # 0.0 Nucleated Red Blood Cells # 0.0 Sodium Level 141 Potassium Level 4.3 Chloride Level 107 Carbon Dioxide Level 26 Anion Gap 8 Blood Urea Nitrogen 14 Creatinine 1.08 Est Glomerular Filtrat Rate mL/min Glucose Level 128 Calcium Level 9.3 Total Bilirubin 0.3 Direct Bilirubin 0.00 Indirect Bilirubin 0.3 Aspartate Amino Transf (AST/SGOT) 13 L Alanine Aminotransferase (ALT/SGPT) 7 L Alkaline Phosphatase 83 Total Protein 7.0 Albumin 4.4 Globulin 2.60 Albumin/Globulin Ratio 1.69 Medications Medication Current Medications Amantadine HCl (Symmetrel) 100 mg BID PO Last administered on 02/14/19at 10:11; Admin Dose 100 MG; Start 02/13/19 at 09:00 Aspirin (Halfprin) 81 mg DAILY PO Last administered on 02/14/19 10:54; Admin Dose 81 MG; Start 02/13/19 at 09:00 Atenolol (Tenormin) 50 mg DAILY PO Last administered on 02/14/19 10:15; Admin Dose 50 MG; Start 02/13/19 at 09:00 Carbidopa/Levodopa (Sinemet Cr (50/ 200)) 1 tab QHS PO Last administered on 02/13/19 20:31; Admin Dose 1 TAB; Start 02/13/19 at 21:00 Dutasteride (Avodart) 0.5 mg DAILY PO Last administered on 02/14/19 10:12; Admin Dose 0.5 MG; Start 02/13/19 at 09:00 Folic Acid (Folic Acid) 1 mg DAILY PO Last administered on 02/14/19 10:13; Admin Dose 1 MG; Start 02/13/19 at 09:00 Montelukast Sodium (Singulair) 10 mg QHS PO Last administered on 02/13/19 20:24; Admin Dose 10 MG; Start 02/13/19 at 21:00 Pantoprazole (Protonix Tab) 40 mg DAILY PO Last administered on 02/14/19 10:12; Admin Dose 40 MG; Start 02/13/19 at 09:00 Pregabalin (Lyrica) 50 mg DAILY PO Last administered on 02/14/19 10:11; Admin Dose 50 MG; Start 02/13/19 at 09:00 Tamsulosin HCl (Flomax) 0.8 mg HS PO Last administered on 02/13/19 20:25; Admin Dose 0.8 MG; Start 02/13/19 at 21:00 Albuterol/ Ipratropium (Duoneb) 3 ml Q8H RESP THERAPY HHN Last administered on 02/13/19 23:12; Admin Dose 3 ML; Start 02/13/19 at 08:00 Nicotine (Nicoderm 7 Mg/ 24 Hr) 1 patch DAILY TRANSDERM Last administered on 02/14/19 10:16; Admin Dose 1 PATCH; Start 02/13/19 at 09:00 Valacyclovir HCl (Valtrex) 1,000 mg BID PO Last administered on 02/14/19 10:11; Admin Dose 1,000 MG; Start 02/13/19 at 09:00 Acetaminophen (Tylenol Tab) 500 mg Q8 PRN PO MILD PAIN(1-3)OR ELEVATED TEMP Last administered on 02/13/19at 22:27; Admin Dose 500 MG; Start 02/13/19 at 03:30 Vancomycin HCl (Vanco Iv Per Pharmacy) VANCOMYCIN PER PHARMACY PER PROTOCOL XX ; Start 02/13/19 at 05:00 Carbidopa/Levodopa (Sinemet (25/ 250)) 1 tab TID@0900,1300,1700 PO Last administered on 02/14/19at 15:08; Admin Dose 1 TAB; Start 02/13/19 at 09:00 Vancomycin HCl 250 ml @ 125 mls/hr Q24H IVPB Last administered on 02/14/19at 05:24; Admin Dose 125 MLS/HR; Start 02/14/19 at 06:00 Acetaminophen/ Hydrocodone Bitart ([place] (5/325)) 1 tab Q6H PRN PO SEVERE PAIN 7-10 Last administered on 02/14/19at 00:45; Admin Dose 1 TAB; Start 02/14/19 at 01:00 PEYMAN DOMINIQUE MD February 14, 2019 16:25
--- NOTE | 2019-02-14 16:29 | CONS ---
Assessment/Plan Assessment/Plan Hospital Course (Demo Recall) EMR reviewed. case coordinated with manager inpatient. Care directed. full note to follow shortly and I will be in shortly as well. Consultation Date/Type/Reason Admit Date/Time February 13, 2019 at 01:16 Initial Consult Date Date/Time of Note DATE: 02/14/19 TIME: 16:27 Exam/Review of Systems Exam Vitals Vital Signs Date Temp Pulse Resp B/P (MAP) Pulse Ox O2 O2 Flow FiO2 Time Delivery Rate 02/14/19 98.8 84 18 136/76 96 14:00 (96) 02/14/19 Room Air 00:42 02/13/19 21 23:12 Intake and Output 02/13/19 02/13/19 02/14/19 1515:00 23:00 07:00 IntakeIntake Total 350 ml 600 ml 720 ml BalanceBalance 350 ml 600 ml 720 ml Results Result Diagram: 02/14/19 0548 02/14/19 0548 Results 24hrs Laboratory Tests Test 02/14/19 05:48 White Blood Count 6.7 Red Blood Count 4.29 L Hemoglobin 12.2 L Hematocrit 39.1 L Mean Corpuscular Volume 91.1 Mean Corpuscular Hemoglobin 28.4 L Mean Corpuscular Hemoglobin Concent 31.2 L Red Cell Distribution Width 13.4 Platelet Count 241 Mean Platelet Volume 11.4 H Immature Granulocytes % 0.400 Neutrophils % 66.6 Lymphocytes % 21.1 Monocytes % 8.2 Eosinophils % 3.3 Basophils % 0.4 Nucleated Red Blood Cells % 0.0 Immature Granulocytes # 0.030 Neutrophils # 4.5 Lymphocytes # 1.4 Monocytes # 0.6 Eosinophils # 0.2 Basophils # 0.0 Nucleated Red Blood Cells # 0.0 Sodium Level 141 Potassium Level 4.3 Chloride Level 107 Carbon Dioxide Level 26 Anion Gap 8 Blood Urea Nitrogen 14 Creatinine 1.08 Est Glomerular Filtrat Rate mL/min Glucose Level 128 Calcium Level 9.3 Total Bilirubin 0.3 Direct Bilirubin 0.00 Indirect Bilirubin 0.3 Aspartate Amino Transf (AST/SGOT) 13 L Alanine Aminotransferase (ALT/SGPT) 7 L Alkaline Phosphatase 83 Total Protein 7.0 Albumin 4.4 Globulin 2.60 Albumin/Globulin Ratio 1.69 Medications Medication Current Medications Amantadine HCl (Symmetrel) 100 mg BID PO Last administered on 02/14/19at 10:11; Admin Dose 100 MG; Start 02/13/19 at 09:00 Aspirin (Halfprin) 81 mg DAILY PO Last administered on 02/14/19 10:54; Admin Dose 81 MG; Start 02/13/19 at 09:00 Atenolol (Tenormin) 50 mg DAILY PO Last administered on 02/14/19 10:15; Admin Dose 50 MG; Start 02/13/19 at 09:00 Carbidopa/Levodopa (Sinemet Cr (50/ 200)) 1 tab QHS PO Last administered on 02/13/19 20:31; Admin Dose 1 TAB; Start 02/13/19 at 21:00 Dutasteride (Avodart) 0.5 mg DAILY PO Last administered on 02/14/19 10:12; Admin Dose 0.5 MG; Start 02/13/19 at 09:00 Folic Acid (Folic Acid) 1 mg DAILY PO Last administered on 02/14/19 10:13; Admin Dose 1 MG; Start 02/13/19 at 09:00 Montelukast Sodium (Singulair) 10 mg QHS PO Last administered on 02/13/19 20:24; Admin Dose 10 MG; Start 02/13/19 at 21:00 Pantoprazole (Protonix Tab) 40 mg DAILY PO Last administered on 02/14/19 10:12; Admin Dose 40 MG; Start 02/13/19 at 09:00 Pregabalin (Lyrica) 50 mg DAILY PO Last administered on 02/14/19 10:11; Admin Dose 50 MG; Start 02/13/19 at 09:00 Tamsulosin HCl (Flomax) 0.8 mg HS PO Last administered on 02/13/19 20:25; Admin Dose 0.8 MG; Start 02/13/19 at 21:00 Albuterol/ Ipratropium (Duoneb) 3 ml Q8H RESP THERAPY HHN Last administered on 02/13/19 23:12; Admin Dose 3 ML; Start 02/13/19 at 08:00 Nicotine (Nicoderm 7 Mg/ 24 Hr) 1 patch DAILY TRANSDERM Last administered on 02/14/19 10:16; Admin Dose 1 PATCH; Start 02/13/19 at 09:00 Valacyclovir HCl (Valtrex) 1,000 mg BID PO Last administered on 02/14/19 10:11; Admin Dose 1,000 MG; Start 02/13/19 at 09:00 Acetaminophen (Tylenol Tab) 500 mg Q8 PRN PO MILD PAIN(1-3)OR ELEVATED TEMP Last administered on 02/13/19at 22:27; Admin Dose 500 MG; Start 02/13/19 at 03:30 Vancomycin HCl (Vanco Iv Per Pharmacy) VANCOMYCIN PER PHARMACY PER PROTOCOL XX ; Start 02/13/19 at 05:00 Carbidopa/Levodopa (Sinemet (25/ 250)) 1 tab TID@0900,1300,1700 PO Last adm inistered on 02/14/19at 15:08; Admin Dose 1 TAB; Start 02/13/19 at 09:00 Vancomycin HCl 250 ml @ 125 mls/hr Q24H IVPB Last administered on 02/14/19at 05:24; Admin Dose 125 MLS/HR; Start 02/14/19 at 06:00 Acetaminophen/ Hydrocodone Bitart ([place] (5/325)) 1 tab Q6H PRN PO SEVERE PAIN 7-10 Last administered on 02/14/19at 00:45; Admin Dose 1 TAB; Start 02/14/19 at 01:00 PEYMAN DOMINIQUE MD February 14, 2019 16:29
--- NOTE | 2019-02-14 16:45 | CONS ---
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 Above plan d/w via [employer] and pt. Consultation Date/Type/Reason Admit Date/Time February 13, 2019 at 01:16 Date of Consultation: February 14, 2019 Type of Consult infectious disease Reason for Consultation possible shingles Requesting Provider: LE STONE MD Date/Time of Note DATE: 02/14/19 TIME: 16:45 Hx of Present Illness This is a 83 year-old male with history of hypertension, Parkinson's disease, dementia, COPD, GI bleed secondary to gastrointestinal AVM, osteoarthritis, anemia, shingles, Mohr's palsy, and headaches who presented to ED, referred by his PMD for complaints of right sided headache x1 week. Pt reports his headaches are usually right sided, non-throbbing, pressure like, onset is usually at nights associated with right ear pain and right eye blurriness. Per report he's had the blurry vision in right eye for several years, in addition he saw an senior quantity surveyor this week and was told there is no significant change in his vision and/or abnormal findings. However, he reports his symptoms are very much similar to the symptoms when he gets shingles. CT Brain showed evidence of chronic sphenoid sinusitis, stable to minimally more pronounced. Pt reports today he is no longer having pain in his right ear, currently denies headaches but reports that he will likely get a headache tonight, denies cough, fevers, chills, dysuria, itching, tingling, numbers on right side of face and ear. No blisters or rash on face and behind his right ear noted, small dry scaling of skin noted behind right ear and mild redness and swelling of right cheek noted. Pt has been started on valacyclovir orally and vancomycin IV. ID consult requested by . Eyes: visual change (chronic right eye bluriness); No pain ENT: other (right ear pain is resolved today per pt ) Respiratory: no complaints Cardiovascular: no complaints Gastrointestinal: no complaints Genitourinary: no complaints Musculoskeletal: no complaints Skin: no complaints Neurologic: no complaints Endocrine: no complaints Lymphatic: no complaints Psychological: no complaints Past Medical History Medical History: angina, colitis, congestive heart failure, coronary artery disease, GERD, GI bleed, high cholesterol, hypertension, renal disease, urinary tract infection Home Meds Reported Medications Pantoprazole* (Protonix*) 40 Mg Tablet.dr, 40 MG PO DAILY, TAB 11/04/18 Folic Acid* (Folic Acid*) 1 Mg Tablet, 1 MG PO DAILY, TAB 09/24/18 Temazepam* (Temazepam*) 15 Mg Capsule, 15 MG PO HS PRN for INSOMNIA, CAP 09/24/18 Aspirin* (Aspirin* EC) 81 Mg Tablet.dr, 81 MG PO DAILY, TAB 09/24/18 Potassium Chloride* (Potassium Chloride*) 8 Meq Capsule.er, 8 MEQ PO DAILY, CAP 09/24/18 Pregabalin* (Lyrica*) 50 Mg Capsule, 50 MG PO DAILY, CAP 09/24/18 Dutasteride* (Avodart*) 0.5 Mg Capsule, 0.5 MG PO DAILY, CAP 09/24/18 Montelukast Sodium* (Montelukast Sodium*) 10 Mg Tablet, 10 MG PO QHS, #30 TAB 09/24/18 Tamsulosin Hcl* (Tamsulosin Hcl*) 0.4 Mg Cap.er.24h, 0.8 MG PO HS, CAP 09/24/18 Atenolol* (Atenolol*) 50 Mg Tablet, 50 MG PO DAILY, #30 TAB 09/24/18 Amantadine Hcl* (Amantadine Hcl*) 100 Mg Capsule, 100 MG PO BID, #60 CAP 09/24/18 Carbidopa/Levodopa (CARBIDOPA-LEVO 25-250 MG ODT) 1 Each Tab.rapdis, 1 TAB PO TID, #90 TAB 09/24/18 Carbidopa-Levodopa* (Sinemet CR*) 50-200 Mg Tabsr, 1 TAB PO QHS, TAB 09/24/18 Medications Current Medications Amantadine HCl (Symmetrel) 100 mg BID PO Last administered on 02/14/19 10:11; Admin Dose 100 MG; Start 02/13/19 at 09:00 Aspirin (Halfprin) 81 mg DAILY PO Last administered on 02/14/19 10:54; Admin Dose 81 MG; Start 02/13/19 at 09:00 Atenolol (Tenormin) 50 mg DAILY PO Last administered on 02/14/19 10:15; Admin Dose 50 MG; Start 02/13/19 at 09:00 Carbidopa/Levodopa (Sinemet Cr (50/ 200)) 1 tab QHS PO Last administered on 02/13/19 20:31; Admin Dose 1 TAB; Start 02/13/19 at 21:00 Dutasteride (Avodart) 0.5 mg DAILY PO Last administered on 02/14/19 10:12; Admin Dose 0.5 MG; Start 02/13/19 at 09:00 Folic Acid (Folic Acid) 1 mg DAILY PO Last administered on 02/14/19 10:13; Admin Dose 1 MG; Start 02/13/19 at 09:00 Montelukast Sodium (Singulair) 10 mg QHS PO Last administered on 02/13/19 20:24; Admin Dose 10 MG; Start 02/13/19 at 21:00 Pantoprazole (Protonix Tab) 40 mg DAILY PO Last administered on 02/14/19 10:12; Admin Dose 40 MG; Start 02/13/19 at 09:00 Pregabalin (Lyrica) 50 mg DAILY PO Last administered on 02/14/19 10:11; Admin Dose 50 MG; Start 02/13/19 at 09:00 Tamsulosin HCl (Flomax) 0.8 mg HS PO Last administered on 02/13/19 20:25; Admin Dose 0.8 MG; Start 02/13/19 at 21:00 Albuterol/ Ipratropium (Duoneb) 3 ml Q8H RESP THERAPY HHN Last administered on 02/13/19 23:12; Admin Dose 3 ML; Start 02/13/19 at 08:00 Nicotine (Nicoderm 7 Mg/ 24 Hr) 1 patch DAILY TRANSDERM Last administered on 02/14/19 10:16; Admin Dose 1 PATCH; Start 02/13/19 at 09:00 Valacyclovir HCl (Valtrex) 1,000 mg BID PO Last administered on 02/14/19at 10:11; Admin Dose 1,000 MG; Start 02/13/19 at 09:00 Acetaminophen (Tylenol Tab) 500 mg Q8 PRN PO MILD PAIN(1-3)OR ELEVATED TEMP Last administered on 02/13/19at 22:27; Admin Dose 500 MG; Start 02/13/19 at 03:30 Vancomycin HCl (Vanco Iv Per Pharmacy) VANCOMYCIN PER PHARMACY PER PROTOCOL XX ; Start 02/13/19 at 05:00 Carbidopa/Levodopa (Sinemet (25/ 250)) 1 tab TID@0900,1300,1700 PO Last administered on 02/14/19at 15:08; Admin Dose 1 TAB; Start 02/13/19 at 09:00 Vancomycin HCl 250 ml @ 125 mls/hr Q24H IVPB Last administered on 02/14/19at 05:24; Admin Dose 125 MLS/HR; Start 02/14/19 at 06:00 Acetaminophen/ Hydrocodone Bitart ([place] (5/325)) 1 tab Q6H PRN PO SEVERE PAIN 7-10 Last administered on 02/14/19at 00:45; Admin Dose 1 TAB; Start 02/14/19 at 01:00 Allergies: Coded Allergies: No Known Allergy (Unverified , 02/13/19) Past Surgical History Past Surgical Hx: endoscopy, other Social History Alcohol Use: none Smoking Status: Current every day smoker Drug Use: none Exam/Review of Systems Exam Vitals Vital Signs Date Temp Pulse Resp B/P (MAP) Pulse Ox O2 O2 Flow FiO2 Time Delivery Rate 02/14/19 98.8 84 18 136/76 96 14:00 (96) 02/14/19 Room Air 00:42 02/13/19 21 23:12 Intake and Output 02/13/19 02/13/19 02/14/19 1515:00 23:00 07:00 IntakeIntake Total 350 ml 600 ml 720 ml BalanceBalance 350 ml 600 ml 720 ml Exam right cheek mild redness and swelling Constitutional: alert, oriented, well developed; No distress Psych: nl mood/affect; No confusion Head: normocephalic, atraumatic Eyes: No nl lids ENMT: mucosa pink and moist Neck: supple Respiratory: clear to auscultation, normal air movement; No congested cough, No wheezing Cardiovascular: regular rate and rhythm Gastrointestinal: soft, non-tender; No distended, No rebound or guarding Musculoskeletal: nl extremities to inspection, range of motion Extremities: No cyanosis, No clubbing Neurological: nl speech, nl strength, other (Right sided facial droop); No confused, No numbness Skin: other (small dry scaling of skin behind right ear noted ); No rash or lesions Results Result Diagram: 02/14/1948 02/14/1948 Results 24hrs Laboratory Tests Test 02/14/19 05:48 White Blood Count 6.7 Red Blood Count 4.29 L Hemoglobin 12.2 L Hematocrit 39.1 L Mean Corpuscular Volume 91.1 Mean Corpuscular Hemoglobin 28.4 L Mean Corpuscular Hemoglobin Concent 31.2 L Red Cell Distribution Width 13.4 Platelet Count 241 Mean Platelet Volume 11.4 H Immature Granulocytes % 0.400 Neutrophils % 66.6 Lymphocytes % 21.1 Monocytes % 8.2 Eosinophils % 3.3 Basophils % 0.4 Nucleated Red Blood Cells % 0.0 Immature Granulocytes # 0.030 Neutrophils # 4.5 Lymphocytes # 1.4 Monocytes # 0.6 Eosinophils # 0.2 Basophils # 0.0 Nucleated Red Blood Cells # 0.0 Sodium Level 141 Potassium Level 4.3 Chloride Level 107 Carbon Dioxide Level 26 Anion Gap 8 Blood Urea Nitrogen 14 Creatinine 1.08 Est Glomerular Filtrat Rate mL/min Glucose Level 128 Calcium Level 9.3 Total Bilirubin 0.3 Direct Bilirubin 0.00 Indirect Bilirubin 0.3 Aspartate Amino Transf (AST/SGOT) 13 L Alanine Aminotransferase (ALT/SGPT) 7 L Alkaline Phosphatase 83 Total Protein 7.0 Albumin 4.4 Globulin 2.60 Albumin/Globulin Ratio 1.69 Imaging Imaging [place] [address] Radiology Main Line: [phone] DIAGNOSTIC IMAGING REPORT Patient: ANNA LAINEZ : 1935 Age: 83 Sex: M MR #: [id number] DOS: 02/13/19 0914 Ordering MD: LE STONE MD Location: [facility] ([place]) Room/Bed: [facility] PROCEDURE: CT Brain without and with contrast. CLINICAL INDICATION: Intractable headache. IMPRESSION: 1. No evidence of acute intracranial pathology. 2. Mild to moderate diffuse atrophy. 3. There is mild microvascular ischemic disease in the periventricular and deep white matter. 4. There is evidence of chronic sphenoid sinusitis, stable to minimally more pronounced. RPTAT: HJAH .Marisol Valdes MD, MD Date Time Electronically viewed and signed by .Marisol Valdes MD, MD on 02/13/2019 15:20 Medications Medication Current Medications Amantadine HCl (Symmetrel) 100 mg BID PO Last administered on 02/14/19 10:11; Admin Dose 100 MG; Start 02/13/19 at 09:00 Aspirin (Halfprin) 81 mg DAILY PO Last administered on 02/14/19 10:54; Admin Dose 81 MG; Start 02/13/19 at 09:00 Atenolol (Tenormin) 50 mg DAILY PO Last administered on 02/14/19 10:15; Admin Dose 50 MG; Start 02/13/19 at 09:00 Carbidopa/Levodopa (Sinemet Cr (50/ 200)) 1 tab QHS PO Last administered on 02/13/19 20:31; Admin Dose 1 TAB; Start 02/13/19 at 21:00 Dutasteride (Avodart) 0.5 mg DAILY PO Last administered on 02/14/19 10:12; Admin Dose 0.5 MG; Start 02/13/19 at 09:00 Folic Acid (Folic Acid) 1 mg DAILY PO Last administered on 02/14/19 10:13; Admin Dose 1 MG; Start 02/13/19 at 09:00 Montelukast Sodium (Singulair) 10 mg QHS PO Last administered on 02/13/19 20:24; Admin Dose 10 MG; Start 02/13/19 at 21:00 Pantoprazole (Protonix Tab) 40 mg DAILY PO Last administered on 02/14/19 10:12; Admin Dose 40 MG; Start 02/13/19 at 09:00 Pregabalin (Lyrica) 50 mg DAILY PO Last administered on 02/14/19 10:11; Admin Dose 50 MG; Start 02/13/19 at 09:00 Tamsulosin HCl (Flomax) 0.8 mg HS PO Last administered on 02/13/19 20:25; Admin Dose 0.8 MG; Start 02/13/19 at 21:00 Albuterol/ Ipratropium (Duoneb) 3 ml Q8H RESP THERAPY HHN Last administered on 02/13/19 23:12; Admin Dose 3 ML; Start 02/13/19 at 08:00 Nicotine (Nicoderm 7 Mg/ 24 Hr) 1 patch DAILY TRANSDERM Last administered on 02/14/19 10:16; Admin Dose 1 PATCH; Start 02/13/19 at 09:00 Valacyclovir HCl (Valtrex) 1,000 mg BID PO Last administered on 02/14/19 10:11; Admin Dose 1,000 MG; Start 02/13/19 at 09:00 Acetaminophen (Tylenol Tab) 500 mg Q8 PRN PO MILD PAIN(1-3)OR ELEVATED TEMP Last administered on 02/13/19 22:27; Admin Dose 500 MG; Start 02/13/19 at 03:30 Vancomycin HCl (Vanco Iv Per Pharmacy) VANCOMYCIN PER PHARMACY PER PROTOCOL XX ; Start 02/13/19 at 05:00 Carbidopa/Levodopa (Sinemet (25/ 250)) 1 tab TID@0900,1300,1700 PO Last administered on 02/14/19 15:08; Admin Dose 1 TAB; Start 02/13/19 at 09:00 Vancomycin HCl 250 ml @ 125 mls/hr Q24H IVPB Last administered on 02/14/19 05:24; Admin Dose 125 MLS/HR; Start 02/14/19 at 06:00 Acetaminophen/ Hydrocodone Bitart ([place] (5/325)) 1 tab Q6H PRN PO SEVERE PAIN 7-10 Last administered on 02/14/19 00:45; Admin Dose 1 TAB; Start 02/14/19 at 01:00 CHANDANA YODER NP February 14, 2019 16:45
--- NOTE | 2019-02-14 18:03 | QN ---
Documentation Comment As Physician Advisor I have reviewed the chart and have determined that as of today, this patient continues to receive medically necessary care required for the diagnosis and treatment of illness or injury. There has been no unreasonable delay in the rendering of medically necessary services, and medically necessary care has required a length of stay greater than two midnights. Additional information gained during the stay now suggests this patient should have been classified as an inpatient at the time of admission, and I will change the status to inpatient to reflect that medical judgment. Besides the notes from the medical providers, the following information was used in this determination: Comorbidities including hypertension, Parkinson's disease, dementia, COPD, shingles of right ear, Mohr's palsy. IV antibiotics Please call me at [phone] with questions. ERIC MA MD February 14, 2019 18:03
[2019-02-14 20:10] VITALS: BP 121/59; PULSE 75; RESP 20
[2019-02-14] MEDS: CARBIDOPA/LEVODOPA 50-200 (CR) TAB PO SCH (21:01)
[2019-02-14] MEDS: MONTELUKAST 10 MG TAB PO SCH (21:01)
[2019-02-14] MEDS: TAMSULOSIN (SR) 0.4 MG CAP PO SCH (21:01)
[2019-02-14] MEDS: ACYCLOVIR 500 MG in SOD CHLORIDE 0.9% 100 ML IVPB SCH (21:55)
[2019-02-15] MEDS: HYDROCODONE/APAP (5/325) TAB PO PRN (00:33)
[2019-02-15] MEDS: ALBUTEROL/IPRATROPIUM (NEB) 3 ML AMP HHN SCH ×3 (00:39→16:52)
[2019-02-15 02:28] VITALS: BP 133/67; PULSE 73; RESP 20
[2019-02-15] MEDS: ACYCLOVIR 500 MG in SOD CHLORIDE 0.9% 100 ML IVPB SCH ×3 (05:36→22:09)
[2019-02-15] MEDS: VANCOMYCIN 1 GM 250 ML IVPB SCH (06:35)
[2019-02-15 08:00] VITALS: BP 115/56; PULSE 78; RESP 17
[2019-02-15] MEDS: FOLIC ACID 1 MG TAB PO SCH ×2 (08:25→08:38)
[2019-02-15] MEDS: PANTOPRAZOLE (EC) 40 MG TAB PO SCH ×2 (08:25→08:38)
[2019-02-15] MEDS: DUTASTERIDE 0.5 MG CAP PO SCH (08:25)
[2019-02-15] MEDS: AMANTADINE 100 MG CAP PO SCH ×2 (08:25→20:36)
[2019-02-15] MEDS: CARBIDOPA/LEVODOPA (25/250) TAB PO SCH ×4 (08:25→17:54)
[2019-02-15] MEDS: ASPIRIN (EC) 81 MG TAB PO SCH (08:26)
[2019-02-15] MEDS: NICOTINE (7 MG/24 HR) PATCH TRANSDERM SCH ×2 (08:26→08:39)
[2019-02-15] MEDS: PREGABALIN 50 MG CAP PO SCH (08:26)
[2019-02-15] MEDS: ATENOLOL 50 MG TAB PO SCH ×2 (08:27→08:38)
[2019-02-15] MEDS: ACETAMINOPHEN 500 MG TAB PO PRN (11:26)
[2019-02-15 14:00] VITALS: BP 150/72; PULSE 80; RESP 18
--- NOTE | 2019-02-15 16:02 | CONS ---
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 Cont. Acyclovir IV (02/14/19 - ) Continue Vanco IV If patient insists on discharge consider po Valtrex 1 g tid x 7 days with po doxy x 7days and outpatient ID f/u in monitor crcl closely Monitor closely right sided cheek redness/swelling and right ear for s/s of herpes zoster Thank you for the consult. Yesterday's plan was directed to HILARIO Rodas via [employer]. Please reference [employer] log. Consultation Date/Type/Reason Admit Date/Time February 14, 2019 at 18:00 Initial Consult Date Requesting Provider: LE STONE MD Date/Time of Note DATE: 02/15/19 TIME: 15:53 24 HR Interval Summary Free Text/Dictation per nursing patient is insisting upon leaving today Exam/Review of Systems Exam Vitals Vital Signs Date Temp Pulse Resp B/P (MAP) Pulse Ox O2 O2 Flow FiO2 Time Delivery Rate 02/15/19 98.1 80 18 150/72 95 Room Air 14:00 (98) 02/15/19 21 00:40 Intake and Output 02/14/19 02/14/19 02/15/19 1515:00 23:00 07:00 IntakeIntake Total 950 ml 690 ml 820 ml BalanceBalance 950 ml 690 ml 820 ml Constitutional: alert, oriented, non-verbal Psych: no complaints Head: normocephalic Eyes: EOMI, other (tearing of right eye) Respiratory: clear to auscultation Cardiovascular: regular rate and rhythm Gastrointestinal: soft Neurological: RELIGIOUS HEALER II-XII intact Skin: other (mild erythema of right cheek and ear) Results Result Diagram: 02/14/1948 02/14/1948 Medications Medication Current Medications Amantadine HCl (Symmetrel) 100 mg BID PO Last administered on 02/15/19at 08:25; Admin Dose 100 MG; Start 02/13/19 at 09:00 Aspirin (Halfprin) 81 mg DAILY PO Last administered on 02/15/19 08:26; Admin Dose 81 MG; Start 02/13/19 at 09:00 Atenolol (Tenormin) 50 mg DAILY PO Last administered on 02/14/19 10:15; Admin Dose 50 MG; Start 02/13/19 at 09:00 Carbidopa/Levodopa (Sinemet Cr (50/ 200)) 1 tab QHS PO Last administered on 02/14/19 21:01; Admin Dose 1 TAB; Start 02/13/19 at 21:00 Dutasteride (Avodart) 0.5 mg DAILY PO Last administered on 02/15/19 08:25; Admin Dose 0.5 MG; Start 02/13/19 at 09:00 Folic Acid (Folic Acid) 1 mg DAILY PO Last administered on 02/14/19 10:13; Admin Dose 1 MG; Start 02/13/19 at 09:00 Montelukast Sodium (Singulair) 10 mg QHS PO Last administered on 02/14/19 21:01; Admin Dose 10 MG; Start 02/13/19 at 21:00 Pantoprazole (Protonix Tab) 40 mg DAILY PO Last administered on 02/14/19 10:12; Admin Dose 40 MG; Start 02/13/19 at 09:00 Pregabalin (Lyrica) 50 mg DAILY PO Last administered on 02/15/19 08:26; Admin Dose 50 MG; Start 02/13/19 at 09:00 Tamsulosin HCl (Flomax) 0.8 mg HS PO Last administered on 02/14/19 21:01; Admin Dose 0.8 MG; Start 02/13/19 at 21:00 Albuterol/ Ipratropium (Duoneb) 3 ml Q8H RESP THERAPY HHN Last administered on 02/15/19 00:39; Admin Dose 3 ML; Start 02/13/19 at 08:00 Nicotine (Nicoderm 7 Mg/ 24 Hr) 1 patch DAILY TRANSDERM Last administered on 02/14/19 10:16; Admin Dose 1 PATCH; Start 02/13/19 at 09:00 Acetaminophen (Tylenol Tab) 500 mg Q8 PRN PO MILD PAIN(1-3)OR ELEVATED TEMP Last administered on 02/15/19 11:26; Admin Dose 500 MG; Start 02/13/19 at 03:30 Vancomycin HCl (Vanco Iv Per Pharmacy) VANCOMYCIN PER PHARMACY PER PROTOCOL XX ; Start 02/13/19 at 05:00 Carbidopa/Levodopa (Sinemet (25/ 250)) 1 tab TID@0900,1300,1700 PO Last administered on 02/15/19at 15:11; Admin Dose 1 TAB; Start 02/13/19 at 09:00 Vancomycin HCl 250 ml @ 125 mls/hr Q24H IVPB Last administered on 02/15/19at 06:35; Admin Dose 125 MLS/HR; Start 02/14/19 at 06:00 Acetaminophen/ Hydrocodone Bitart ([place] (5/325)) 1 tab Q6H PRN PO SEVERE PAIN 7-10 Last administered on 02/15/19at 00:33; Admin Dose 1 TAB; Start 02/14/19 at 01:00 Acyclovir 500 mg/ Sodium Chloride 100 ml @ 100 mls/hr Q8 IVPB Last administered on 02/15/19at 13:09; Admin Dose 100 MLS/HR; Start 02/14/19 at 22:00 Miscellaneous Information (*Rx Drug Level Order Reminder*) VANCOMYCIN TROUGH LEVEL... 0500 ONCE XX ; Start 02/16/19 at 05:00; Stop 02/16/19 at 05:01 PEYMAN DOMINIQUE MD February 15, 2019 16:02
[2019-02-15 20:00] VITALS: BP 145/67; PULSE 82; RESP 19
[2019-02-15] MEDS: TAMSULOSIN (SR) 0.4 MG CAP PO SCH (20:35)
[2019-02-15] MEDS: MONTELUKAST 10 MG TAB PO SCH (20:36)
[2019-02-15] MEDS: CARBIDOPA/LEVODOPA 50-200 (CR) TAB PO SCH (20:36)
--- NOTE | 2019-02-15 20:49 | PN ---
Date/Time of Note Date/Time of Note DATE: 02/15/19 TIME: 20:44 Assessment/Plan VTE Prophylaxis Risk score (from Nsg)>0 risk: 3 SCD applied (from Nsg): Yes SCD contraindicated: other (on.) Pharmacological prophylaxis: LMWH Lines/Catheters IV Catheter Type (from Nrsg): [place] [employer] line still needed: No Urinary Cath still in place: Yes Reason Cath still needed: urinary retention Assessment/Plan Assessment/Plan 1. Right hemicranial pain mainly in the forehead area and right ear area with urinalysis and erythema of the earlobe on the right side of the face getting more edematous comparing with yesterday along with the pain. No radiation of the posterior aspect of the right earlobe possible recurrence of her shingles however no blister. Decreased erythema of the right cheek area. 2. Nausea with no vomiting. 3. Sinusitis with pain recurrent. 4. Recurrent episode of severe hypoxemia last night accompanying with confusion irritability noncompliance and possible psychosis .for severe hypoxemia-pu lmonary consult acknowledged. PFT test planned 5. 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 6. COPD exacerbation with pleural effusion. 7 Hx nicotine addiction with current restarted smoking according to him 5 to 6 cigarettes a day. 8. anemia of chronic disease and iron deficiency 9. Low back pain 10. Weight loss 11. Ad and MD 12. Ischemic heart disease angina 13. 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 Confusion, disorientation, occasional episodes of delusions 15. BPH 16. Osteoporosis and osteoarthritis 17. Memory impairment 18. Unstable gait 19. Dehydration with near fall episodes 20. Muscular atrophy 21. Severe peripheral neuropathy 22. Noncompliance to medications 23.Uncontrolled HTN 24.Hx of intubation and mechanical ventilation many years ago after severe exacerbation of copd. 25.History of multiple units of prbc transfusion in [facility]. the narrow arteries of the of the right side and partially to the left lower extremity 26. Anxiety disorder with episodes of confusion panic attack as well as last night improved after taking Ativan 1 mg IV. 27.Incomplete information. Result Diagram: 02/14/1946 02/14/19547 Subjective 24 Hr Interval Summary Free Text/Dictation Decrease edema of right cheek and right side of the face. Increased lacrimation. Pain in the right ear area anterior condyles and posterior aspect of the earlobe. No fever and chills positive nausea but no vomiting. Patient is demanded to be discharged. Explained at least one day being under the doctor's control to see the more significant change of his health condition. Constitutional: chills, poor po, requiring O2; No no complaints, No improved, No diaphoresis, No disoriented, No febrile, No requiring IVF, No other Eyes: No no complaints, No pain, No discharge, No redness, No visual change, No other ENT: congestion, other (Right cheek erythema with right ear pain.); No no complaints, No bleeding, No pain, No discharge, No dysphagia, No sore throat Respiratory: cough, pleuritic pain, shortness of breath; No no complaints, No pain, No sputum, No wheezing, No other Cardiovascular: chest pain; No no complaints, No edema, No lightheadedness, No orthopenea, No palpitations, No paroxysmal nocturnal dyspnea, No other Gastrointestinal: constipation, flatus, nausea; No no complaints, No pain, No blood, No decreased appetite, No diarrhea, No passing stool, No vomiting, No other Musculoskeletal: back pain, bone/joint pain; No no complaints, No neck pain, No restricted range of motion, No swelling, No other Skin: erythema; No no complaints, No bruising, No laceration, No pruritis, No rash, No skin lesions, No other Neurologic: confusion, dizziness, headache; No no complaints, No focal-weakness, No syncope, No seizure, No other Endocrine: No no complaints, No polyuria, No polydypsia, No dry skin, No temp intolerance, No other Exam/Review of Systems Exam Vitals Vital Signs Date Temp Pulse Resp B/P (MAP) Pulse Ox O2 O2 Flow FiO2 Time Delivery Rate 02/15/19 98.8 82 19 145/67 95 20:00 (93) 02/15/19 21 16:52 02/15/19 Room Air 14:00 Intake and Output 02/14/19 02/14/19 02/15/19 1515:00 23:00 07:00 IntakeIntake Total 950 ml 690 ml 820 ml BalanceBalance 950 ml 690 ml 820 ml Constitutional: alert, oriented, well developed, distress, frail Psych: nl mood/affect (Anxious tense having visual hallucinations depressed.), anxiety, confusion (On and off.), depression; No no complaints, No suicidal, No other Head: normocephalic, atraumatic Eyes: EOMI, nl lids; No nl conjunctiva, No nl sclera, No PERRL, No icteric, No fundi, disc, No other ENMT: nl lips & teeth; No nl external ears & nose, No nl nasal mucosa & septum, No mucosa pink and moist, No intubated, No tympanic membranes, No other Neck: jvd, bruits, nuchal rigidity; No supple, No non-tender, No masses, No thyromegaly, No other Respiratory: congested cough, crackles/rales, diminished breath sounds, wheezing; No clear to auscultation, No normal air movement, No intercostal retraction, No labored breathing, No respirations, No tactile fremitus, No other Cardiovascular: nl pulses, bruits, edema, jugular venous distention (JVD), systolic murmur; No regular rate and rhythm, No diastolic murmur, No gallop, No irregular rhythm, No murmurs/extra sounds, No rub, No S3, No S4, No other Gastrointestinal: nl liver, spleen, bowel sounds; No soft, No non-tender, No ascites, No distended, No firm, No hepatomegaly, No mass, No rebound or guarding, No splenomegaly, No surgical scars, No tender, No other Genitourinary - Male: nl penis, nl scrotum Musculoskeletal: joint tenderness, muscle tone, muscle weakness; No nl extremities to inspection, No nl gait and stance, No range of motion, No spine non-tender, No swelling, No other Neurological: SOAP MIXER II-XII intact, confused (On and off.); No nl mental status, No nl speech, No nl strength, No DTR's symmetric, No focal weakness, No lethargic, No numbness, No reflexes, No unresponsive, No other Skin: nl turgor (Decreased.), rash or lesions (Erythematous rash of the right cheek improving.); No diaphoresis, No ecchymosis, No laceration, No puncture, No other Lymph: No nl lymph nodes, No enlarged, No nontender, No other Medications Medication Current Medications Amantadine HCl (Symmetrel) 100 mg BID PO Last administered on 02/15/19 20:36; Admin Dose 100 MG; Start 02/13/19 at 09:00 Aspirin (Halfprin) 81 mg DAILY PO Last administered on 02/15/19 08:26; Admin Dose 81 MG; Start 02/13/19 at 09:00 Atenolol (Tenormin) 50 mg DAILY PO Last administered on 02/14/19 10:15; Admin Dose 50 MG; Start 02/13/19 at 09:00 Carbidopa/Levodopa (Sinemet Cr (50/ 200)) 1 tab QHS PO Last administered on 02/15/19 20:36; Admin Dose 1 TAB; Start 02/13/19 at 21:00 Dutasteride (Avodart) 0.5 mg DAILY PO Last administered on 02/15/19 08:25; Admin Dose 0.5 MG; Start 02/13/19 at 09:00 Folic Acid (Folic Acid) 1 mg DAILY PO Last administered on 02/14/19 10:13; Ad min Dose 1 MG; Start 02/13/19 at 09:00 Montelukast Sodium (Singulair) 10 mg QHS PO Last administered on 02/15/19 20:36; Admin Dose 10 MG; Start 02/13/19 at 21:00 Pantoprazole (Protonix Tab) 40 mg DAILY PO Last administered on 02/14/19 10:12; Admin Dose 40 MG; Start 02/13/19 at 09:00 Pregabalin (Lyrica) 50 mg DAILY PO Last administered on 02/15/19 08:26; Admin Dose 50 MG; Start 02/13/19 at 09:00 Tamsulosin HCl (Flomax) 0.8 mg HS PO Last administered on 02/15/19 20:35; Admin Dose 0.8 MG; Start 02/13/19 at 21:00 Albuterol/ Ipratropium (Duoneb) 3 ml Q8H RESP THERAPY HHN Last administered on 02/15/19 16:52; Admin Dose 3 ML; Start 02/13/19 at 08:00 Nicotine (Nicoderm 7 Mg/ 24 Hr) 1 patch DAILY TRANSDERM Last administered on 5/16/19at 10:16; Admin Dose 1 PATCH; Start 02/13/19 at 09:00 Acetaminophen (Tylenol Tab) 500 mg Q8 PRN PO MILD PAIN(1-3)OR ELEVATED TEMP Last administered on 02/15/19at 11:26; Admin Dose 500 MG; Start 02/13/19 at 03:30 Vancomycin HCl (Vanco Iv Per Pharmacy) VANCOMYCIN PER PHARMACY PER PROTOCOL XX ; Start 02/13/19 at 05:00 Carbidopa/Levodopa (Sinemet (25/ 250)) 1 tab TID@0900,1300,1700 PO Last administered on 02/15/19at 17:54; Admin Dose 1 TAB; Start 02/13/19 at 09:00 Vancomycin HCl 250 ml @ 125 mls/hr Q24H IVPB Last administered on 02/15/19at 06:35; Admin Dose 125 MLS/HR; Start 02/14/19 at 06:00 Acetaminophen/ Hydrocodone Bitart ([place] (5/325)) 1 tab Q6H PRN PO SEVERE PAIN 7-10 Last administered on 02/15/19at 00:33; Admin Dose 1 TAB; Start 02/14/19 at 01:00 Acyclovir 500 mg/ Sodium Chloride 100 ml @ 100 mls/hr Q8 IVPB Last administered on 02/15/19at 13:09; Admin Dose 100 MLS/HR; Start 02/14/19 at 22:00 Miscellaneous Information (*Rx Drug Level Order Reminder*) VANCOMYCIN TROUGH LEVEL... 0500 ONCE XX ; Start 02/16/19 at 05:00; Stop 02/16/19 at 05:01 LE STONE MD February 15, 2019 20:49
[2019-02-15] MEDS ORDERED: QUETIAPINE 25 MG TAB PO ONE (21:30)
--- NOTE | 2019-02-15 21:36 | QN ---
Documentation Comment I was called by the of the patient that her is not talking healthy talk. He is talking that there are people are making extremities in front of him. He is telling that they brought him here wrongfully. He wanted to go out. They received a call from my office nurse who reported me that patient called her too and she was unable to understand what he is talking about. I came to see the patient at about 9:30 PM. It is evident that he is disoriented. He recognized me. He knows that he is in the hospital. But is expressing thoughts that it was wrong to place him in the hospital. That people have no right telling him not to go out from the room. He also stated that while I am staying here with when they give me only on 2 or 3 injections a day and couple of tablets. Explained the patient that the condition is improving most probably tomorrow morning he is going to go home. That they will come routing machine operator and see him again he agreed to stay. I also asked the to comment be nearby the patient. Seroquel was added. Psychiatric consult will be requested. Explained RN for 1-1 sitting. Be more attentive that he will not harm himself and be in touch directly with me. LE STONE MD February 15, 2019 21:36
[2019-02-15] MEDS ORDERED: LORAZEPAM 1 MG TAB PO SCH (22:00)
[2019-02-16 02:06] VITALS: BP 128/68; PULSE 72; RESP 20
[2019-02-16] MEDS: ACYCLOVIR 500 MG in SOD CHLORIDE 0.9% 100 ML IVPB SCH (06:19)
[2019-02-16] MEDS: VANCOMYCIN 1 GM 250 ML IVPB SCH (07:22)
[2019-02-16 08:00] VITALS: BP 131/66; PULSE 79; RESP 18
[2019-02-16] MEDS: ALBUTEROL/IPRATROPIUM (NEB) 3 ML AMP HHN SCH ×2 (08:00)
--- NOTE | 2019-02-16 08:28 | DS ---
Date/Time of Note Date/Time of Note DATE: 02/16/19 TIME: 08:23 Discharge Summary Admission/Discharge Info Admit Date/Time February 14, 2019 at 18:00 Discharge Date/Time Discharge Diagnosis January at 11am. Patient Condition: Guarded Hx of Present Illness Headache mainly in the frontal area accompanied with nausea and worsening of her shaking of right more than left upper extremity. Now the pain is more in the retroauricular area and he feels blurry vision on the right eye mainly. The patient came to the office last 3 days almost daily with above-mentioned complaints and having also chills. He smokes had a history of intubation due to worsening of his COPD and had ischemic heart disease angina decision was made to start antibiotic in the form of Zithromax along with Labe Lama inhaler in the form of Anoro last 3 days. After starting the treatment 1 day patient felt better that the pain intensity came down and he had no chills. However yesterday patient came to the office twice one in the morning when physical exam was without significant findings however during the daytime when patient came to the office he was stating that the blurry vision of the right eye got more prominent referred him to the planting machine operator in the [place] area after 3 hours patient came back with a statement that fundal examination was normal pressures were normal there were no signs of any acute changes in the eyes. Patient continues to have frontal area headache mainly in the right side right eye pain including right ear pain he had a history of shingles the suspicion of a possible recurrence of his shingles in the same region with erythema of the right earlobe area and hearing impairment along with worsening of shortness of breath becoming dizzy and worsening of a headache was a basis for me to change outpatient treatment plan to the inpatient and attempted to admit the patient by direct admission. Multiple schools were made but it was impossible and the patient was admitted to the emergency room. Lab results were not significant compared with the previous exams including the anemia level. His WBCs are not elevated CT of the head was not done. Started with empiric antibiotics including coverage for possible recurrence of herpes zoster. Hospital Course Anxious, tense.Syptoms mimicking the zoster disappeared.Planned continue Valtrex x 6 more days with doxy 100 bid. x 7 days .The patient had developed delirium like symptoms . Now improving and happy because he is going home.Feels more relaxed. Home Meds Reported Medications Pantoprazole* (Protonix*) 40 Mg Tablet.dr, 40 MG PO DAILY, TAB 11/04/18 Folic Acid* (Folic Acid*) 1 Mg Tablet, 1 MG PO DAILY, TAB 09/24/18 Temazepam* (Temazepam*) 15 Mg Capsule, 15 MG PO HS PRN for INSOMNIA, CAP 09/24/18 Aspirin* (Aspirin* EC) 81 Mg Tablet.dr, 81 MG PO DAILY, TAB 09/24/18 Potassium Chloride* (Potassium Chloride*) 8 Meq Capsule.er, 8 MEQ PO DAILY, CAP 09/24/18 Pregabalin* (Lyrica*) 50 Mg Capsule, 50 MG PO DAILY, CAP 09/24/18 Dutasteride* (Avodart*) 0.5 Mg Capsule, 0.5 MG PO DAILY, CAP 09/24/18 Montelukast Sodium* (Montelukast Sodium*) 10 Mg Tablet, 10 MG PO QHS, #30 TAB 09/24/18 Tamsulosin Hcl* (Tamsulosin Hcl*) 0.4 Mg Cap.er.24h, 0.8 MG PO HS, CAP 09/24/18 Atenolol* (Atenolol*) 50 Mg Tablet, 50 MG PO DAILY, #30 TAB 09/24/18 Amantadine Hcl* (Amantadine Hcl*) 100 Mg Capsule, 100 MG PO BID, #60 CAP 09/24/18 Carbidopa/Levodopa (CARBIDOPA-LEVO 25-250 MG ODT) 1 Each Tab.rapdis, 1 TAB PO TID, #90 TAB 09/24/18 Carbidopa-Levodopa* (Sinemet CR*) 50-200 Mg Tabsr, 1 TAB PO QHS, TAB 09/24/18 Follow-up Plan in 3 days or prn to . In one week do . Primary Care Provider Aviva Stone MD Time spent on discharge: > 30 minutes Pending Labs Laboratory Tests Test 02/16/19 06:07 Vancomycin Level Trough 7.9 ug/ml (10.0-20.0) AVIVA STONE MD February 16, 2019 08:28
[2019-02-16] MEDS: DUTASTERIDE 0.5 MG CAP PO SCH (08:58)
[2019-02-16] MEDS: FOLIC ACID 1 MG TAB PO SCH (08:58)
[2019-02-16] MEDS: ASPIRIN (EC) 81 MG TAB PO SCH (08:58)
[2019-02-16] MEDS: PANTOPRAZOLE (EC) 40 MG TAB PO SCH (08:59)
[2019-02-16] MEDS: AMANTADINE 100 MG CAP PO SCH (09:00)
[2019-02-16] MEDS: NICOTINE (7 MG/24 HR) PATCH TRANSDERM SCH (09:00)
[2019-02-16] MEDS: ATENOLOL 50 MG TAB PO SCH (09:01)
[2019-02-16] MEDS ORDERED: CARBIDOPA/LEVODOPA (25/100) TAB ONE (10:18)
[2019-02-16] MEDS: PREGABALIN 50 MG CAP PO SCH (10:20)
--- NOTE | 2019-02-16 10:30 | PSY ---
Date/Time of Note Date/Time of Note DATE: 02/16/19 TIME: 10:29 Psychiatric Subjective Eval Consent Pt consented to telemedicine: No Subjective Evaluation Patient location: inpatient Chief Complaint: C/O SEVERE HAMM X2 DAYS, TREATED SHINGLES TO RT FACE 6MONTHS AGO History of present illness Patient is 83-year-old male with underlying medical issues of angina, colitis, congestive heart failure, coronary artery disease, GERD, GI bleed, high cholesterol, hypertension, renal disease, urinary tract infection and currently admitted for frontal area headache. Hospitalization: other Medical history Problems Medical Problems: (1) Dehydration Status: Acute (2) Dehydration Status: Acute (3) Dementia Status: Acute (4) Essential hypertension Status: Acute (5) Essential hypertension Status: Acute (6) Headache Status: Acute (7) Headache Status: Acute (8) Hypertension Status: Acute (9) Parkinsons Status: Acute (10) Parkinsons Status: Acute (11) Parkinsons disease Status: Acute Allergies: Coded Allergies: No Known Allergy (Unverified , 02/13/19) Substance Abuse Substance abuse history: No Prior substance abuse treatmen: No Social History Marital status: other DPA/Conservatorship: No Psychiatric Objective Eval Mental Status Examination: Laboratory Results Laboratory Tests Test 02/16/19 06:07 Vancomycin Level Trough 7.9 ug/ml TAMIR HERNANDEZ NP February 16, 2019 10:30
[2019-02-16] MEDS: CARBIDOPA/LEVODOPA (25/250) TAB PO SCH (11:05)
[2019-02-16] MEDS ORDERED: VANCOMYCIN 750 MG (PMX) 250 ML IVPB SCH (18:00)
[2019-02-16 19:40] LABS: VARICELLA-ZOSTER VIRUS AB IgM 0.21
[2019-02-16] MEDS ORDERED: LORAZEPAM 1 MG TAB PO SCH (21:00)
[2019-02-17] MEDS ORDERED: VANCOMYCIN HCL 1.5 GM in SOD CHLORIDE 0.9% 250 ML IVPB SCH (07:00)
== END 2019-02-16 11:30 | disposition home or self-care (01) | DRG 103 ==
LOC: E/R 20:16 → PP2 02-13 01:16 → OBSVTOIN 02-14 18:00 → 5EC 02-16 01:35
PROVIDERS: ADMIT Family Medicine; ATTEND Family Medicine
DX: R51 Headache (principal); L03.211 Cellulitis of face; Z72.0 Tobacco use; J44.9 Chronic obstructive pulmonary disease, unspecified; R11.0 Nausea; F41.9 Anxiety disorder, unspecified; H53.8 Other visual disturbances; R09.02 Hypoxemia; J32.3 Chronic sphenoidal sinusitis; I10 Essential (primary) hypertension; H92.01 Otalgia, right ear; Z91.14 Patient's other noncompliance with medication regimen; N40.0 Benign prostatic hyperplasia without lower urinary tract symptoms; E86.0 Dehydration; H91.90 Unspecified hearing loss, unspecified ear
CPT/HCPCS: 36415; 70470; 80053; 80202; 81001; 82550; 82553; 83540; 83690; 83735; 84484; 85025; 85651; 86140; 90716; 94640; G0378; J0133; J3370; J7040; J7050; Q9967